=== PATIENT | female | born 1975 | race African-American/Black ===

== ENCOUNTER 2017-05-28 21:45 | Emergency (ER) | payer BC, OTHER ==
[2017-05-28] MEDS ORDERED: Ketorolac Tromethamine 30 MG/ML VIAL ONE (22:08)
[2017-05-28] MEDS ORDERED: diphenhydrAMINE 50 MG/ML VIAL ONE (22:08)
[2017-05-28] MEDS ORDERED: Ondansetron HCl/PF 4 MG/2 ML Vial ONE (22:08)
[2017-05-28] MEDS ORDERED: Amlodipine 5 MG TAB ONE (23:08)
[2017-05-28] MEDS ORDERED: Metoprolol Tartrate 25 MG TAB ONE (23:08)
[2017-05-28] MEDS ORDERED: Metoprolol Tartrate 50 MG TAB ONE (23:08)
--- NOTE | 2017-05-28 23:16 | CT ---
CT HEAD WITHOUT CONTRAST: Technique: Multiple axial tomograms were obtained through the head without IV enhancement. History: Headache. FINDINGS: Ventricles have normal size and position. No evidence of intracranial mass or hemorrhage. No evidence of infarct. Sinuses and mastoids are aerated. There is a calcified subcutaneous nodule along the lateral left frontal bone measuring approximately 1.8 cm. This abuts the outer cortex of the frontal bone. This could potentially represent a focal ost eoma. It is a benign finding. IMPRESSION: No acute intracranial abnormality. POS: [facility]
== END 2017-05-28 23:14 | disposition home or self-care (01) ==
LOC: SCSER 21:45
DX: G43.909 Migraine, unspecified, not intractable, without status migrainosus (principal); I10 Essential (primary) hypertension; E11.9 Type 2 diabetes mellitus without complications; Z79.84 Long term (current) use of oral hypoglycemic drugs; Z79.899 Other long term (current) drug therapy
CPT/HCPCS: 70450; 96361; 96374; 96375; J1200; J1885; J2405

== ENCOUNTER 2018-05-05 18:14 | Emergency (ER) | payer OTHER, SELFPAY ==
[2018-05-05] MEDS ORDERED: Bicillin LA 1.2 MILLION UNITS/2 ML SYRINGE ONE (19:54)
== END 2018-05-05 20:25 | disposition home or self-care (01) ==
LOC: SCSER 18:14
DX: J02.0 Streptococcal pharyngitis (principal); I10 Essential (primary) hypertension; G43.909 Migraine, unspecified, not intractable, without status migrainosus; J45.909 Unspecified asthma, uncomplicated; E11.9 Type 2 diabetes mellitus without complications; Z86.718 Personal history of other venous thrombosis and embolism; Z79.899 Other long term (current) drug therapy; Z79.84 Long term (current) use of oral hypoglycemic drugs
CPT/HCPCS: 87430; 96372; J0561